=== PATIENT | male | born 2000 | race Caucasian/White ===

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

== ENCOUNTER → 2019-11-04 | Outpatient (CLI) | payer OTHER ==
[2019-11-04 13:25] LABS: BODY FLUID WBC 1362 /uL
[2019-11-04 14:03] LABS: BF LYMPHOCYTES 11 %; BF MACROPHAGES 76 %; BF NEUTROPHILS 5 %
[2019-11-05 15:09] LABS: ACID FAST SPEC PROCESSING Concentration (.)
== END ==
LOC: LAB 11:57
PROVIDERS: Orthopaedic Surgery
DX: M25.461 Effusion, right knee (principal)

== ENCOUNTER 2021-10-01 00:16 | Emergency (ER) | payer OTHER, BC | END 2021-10-01 01:50 | disposition left against medical advice (07) | LOC: ED 00:16 | DX: Z53.21 Procedure and treatment not carried out due to patient leaving prior to being seen by health care provider (principal) ==

== ENCOUNTER → 2023-10-08 | Outpatient (CLI) | payer OTHER, BC ==
[2023-10-08 16:01] LABS: FREE T4 1.01 ng/dl (0.89-1.76)
== END | disposition home or self-care (01) ==
LOC: LAB 15:12
PROVIDERS: ATTEND Family Medicine
DX: E83.52 Hypercalcemia (principal); R51.9 Headache, unspecified; R53.83 Other fatigue; M25.50 Pain in unspecified joint